=== PATIENT | female | born 1950 | race Two or more races ===

== ENCOUNTER 2019-01-16 06:30 | Day surgery (SDC) | payer OTHER | END 2019-01-16 11:15 | disposition home or self-care (01) | LOC: AMB-ENDOS 06:30 | DX: K57.20 Diverticulitis of large intestine with perforation and abscess without bleeding (principal); Z93.3 Colostomy status ==

== ENCOUNTER 2019-02-21 10:00 | Inpatient (IN) | payer OTHER ==
[~2019-02-21] VITALS: Ht 152.4 cm; Wt 86.2 kg
[2019-02-21] MEDS ORDERED: METFORMIN HCL500 MG PO (15:18)
[2019-02-21] MEDS ORDERED: LOSARTAN-HCTZ1 EAC1 PO (15:18)
[2019-03-04] MEDS ORDERED: OXYC1TAB9 PO (08:50)
[2019-03-04] MEDS ORDERED: HYOSCYAMINE0.125 M1 SL (08:50)
== END 2019-03-04 10:08 | disposition home or self-care (01) | DRG 330 ==
LOC: SURG 02-28 06:26 → O/R 02-28 06:26 → SURH 02-28 10:00 → SURG 02-28 20:13
PROVIDERS: Urology; ADMIT Surgery
PROC: 0DTU0ZZ Resection of Omentum, Open Approach (ICD-10-PCS; 2019-02-28)
PROC: 0DQN0ZZ Repair Sigmoid Colon, Open Approach (ICD-10-PCS; 2019-02-28)
PROC: 0T788DZ Dilation of Bilateral Ureters with Intraluminal Device, Via Natural or Artificial Opening Endoscopic (ICD-10-PCS; 2019-02-28)
PROC: 0DTN0ZZ Resection of Sigmoid Colon, Open Approach (ICD-10-PCS; principal; 2019-02-28 10:30)
PROC: 0DQN0ZZ Repair Sigmoid Colon, Open Approach (ICD-10-PCS; 2019-02-28 10:30)
DX: K57.20 Diverticulitis of large intestine with perforation and abscess without bleeding (principal); K91.71 Accidental puncture and laceration of a digestive system organ or structure during a digestive system procedure; D62 Acute posthemorrhagic anemia; K66.0 Peritoneal adhesions (postprocedural) (postinfection); I10 Essential (primary) hypertension; E11.9 Type 2 diabetes mellitus without complications; K21.9 Gastro-esophageal reflux disease without esophagitis; Z93.3 Colostomy status

== ENCOUNTER 2020-04-29 06:30 | Day surgery (SDC) | payer OTHER ==
[~2020-04-29 06:30] MED LIST: HYOSCYAMINE0.125 M1 SL; LOSARTAN-HCTZ1 EAC1 PO; METFORMIN HCL500 MG PO; OXYC1TAB9 PO
== END 2020-04-29 12:05 | disposition home or self-care (01) ==
LOC: AMB-ENDOS 06:30 → ADM 14:15 → AMB-ENDOS 14:15
PROVIDERS: ATTEND Surgery
DX: K62.89 Other specified diseases of anus and rectum (principal); Z93.3 Colostomy status; K64.8 Other hemorrhoids